=== PATIENT | male | born 1985 | race Caucasian/White ===

== ENCOUNTER 2022-12-30 15:07 | Emergency (ER) | payer MEDICAID, SELFPAY ==
[2022-12-30 15:19] VITALS: BP 138/75; PULSE 99; RESP 22; TEMP 36.5; O2SAT 97; BMI 33.0
--- NOTE | 2022-12-30 15:31 | CRLHL7_ITS ---
For Patients: As a result of the Cures Act, medical imaging exams and procedure reports are released immediately into your electronic medical record. You may view this report before your referring provider. If you have questions, please contact your health care provider. INDICATION: Left TMJ injury and pain. TECHNIQUE: CT maxillofacial without contrast. COMPARISON: None FINDINGS: Facial bones: No fractures or bone lesions. Specifically the nasal bones, temporomandibular joints, maxilla and mandible appear intact. Orbits and globes: Unremarkable. Globes are intact. No sign of intraorbital hemorrhage or emphysema. Sinuses: No acute or significant findings. Soft tissues: Unremarkable. IMPRESSION: Normal maxillofacial CT. Please note that all CT scans at this facility use dose modulation, iterative reconstruction, and/or weight-based dosing when appropriate to reduce radiation dose to as low as reasonably achievable. Dictated by Bruno Bhandari MD @ 12/30/2022 4:45:42 PM (Electronically Signed)
--- NOTE | 2022-12-30 17:02 | ED.GENADULT ---
HPI - General Adult General Chief complaint: Jaw Injury/Pain Stated complaint: Jaw Injury Time Seen by Provider: 12/30/22 15:26 Source: patient Mode of arrival: ambulatory Limitations: no limitations History of Present Illness HPI narrative: 37-year-old male coming in today complaining of jaw pain and jaw deviation. He states that about 4 days ago he was trying hold piece of paper underneath his chin when he felt a pop in the left TMJ and had immediate discomfort. Soon after he noticed that his jaw was deviated to the right. He complains now of pain just anterior to the ear, pain with opening closing the mouth. He denies any systemic symptoms like fevers or chills. He denies nausea or vomiting. He denies ear pain. He can open and close his jaw but it again is painful, he has pain with chewing. He has no stinging or burning sensation across the cheek chin or forehead. No drainage from the ear. He denies any teeth pain. Related Data Home Medications Medication Instructions Recorded Confirmed No Known Home Medications 12/30/22 12/30/22 Allergies Allergy/AdvReac Type Severity Reaction Status Date / Time No Known Drug Allergies Allergy Verified 12/30/22 15:23 Review of Systems Status of ROS: Reports: 10 or more systems reviewed and unremarkable except as noted in History and below PFSH [facility] Social History Smoking Status: Current every day smoker What tobacco products do you use: cigarettes Smoking packs per day: 1 Smoking cigarettes per day: 20.0 Do you use any of these nicotine containing products: None Second hand tobacco smoke exposure: No How often do you have a drink containing alcohol: 2-4 times a month How many standard drinks containing alcohol do you have on a typical day: 1 or 2 How often do you have six or more drinks on one occasion: Never AUDIT-C Alcohol total score: 2 Non-prescribed substance use: denies use Exam Narrative: Exam Narrative: Well-nourished well-developed patient in no acute distress. Alert and oriented. Answers questions appropriately. Mood and affect are appropriate. Thoughts are goal oriented and rational. No tangential or magical thinking noted. Patient speaks in full sentences without needing to catch his breath. HEENT: Normocephalic atraumatic. Pupils are equally round reactive to light. Extraocular muscles are intact. Conjunctivae are moist without any icterus noted. Moist mucous membranes. Posterior pharynx is normal. Neck is soft without any lymphadenopathy or thyromegaly. No masses are appreciated. TMs are clear bilaterally. Teeth are intact. Normal tongue. It does appear that the mandible is deviated slightly to the right. When he closes his mouth his teeth do not quite line up. He is able to open and close his mouth fully with discomfort at the left TMJ however. He can move the mandible left and right buttock again, causes discomfort. Cardiovascular: Heart is regular rate and rhythm. Lungs: Clear to auscultation bilaterally. Skin: Well perfused without any obvious rashes. Const: Vital Signs, click to edit/add: Vital Signs - 24 hr 12/30/22 15:19 Temperature 97.7 F Pulse Rate [Pulse Oximeter] 99 Respiratory Rate 22 Blood Pressure [Ri ght Upper Arm] 138/75 Pulse Oximetry 97 Oxygen Delivery Me thod Room Air Course Course Hospital Course: Given the deviation of his jaw we did proceed with a facial bone CT scan which was unremarkable. Vital Signs Vital signs: Initial Vital Signs Temperature 97.7 F 12/30/22 15:19 Temperature Source Temporal Artery Scan 12/30/22 15:19 Pulse Rate 99 12/30/22 15:19 Respiratory Rate 12/30/22 15:19 Blood Pressure 138/75 12/30/22 15:19 Blood Pressure Mean 96 12/30/22 15:19 Blood Pressure Position Sitting 12/30/22 15:19 Pulse Oximetry 97 12/30/22 15:19 Oxygen Delivery Method 12/30/22 15:19 Vital Signs Temperature 97.7 F 12/30/22 15:19 Pulse Rate 99 12/30/22 15:19 Respiratory Rate 22 12/30/22 15:19 Blood Pressure 138/75 12/30/22 15:19 Pulse Oximetry 97 12/30/22 15:19 Oxygen Delivery Method 12/30/22 15:19 Temperature 97.7 F 12/30/22 15:19 Pulse Rate 99 12/30/22 15:19 Respiratory Rate 22 12/30/22 15:19 Blood Pressure 138/75 12/30/22 15:19 Pulse Oximetry 97 12/30/22 15:19 Oxygen Delivery Method 12/30/22 15:19 Medical Decision Making MDM Narrative Medical decision making narrative: 37-year-old male with pain at the left TMJ after hearing a sudden pop. Question if he is experiencing inflammation or swelling at that joint causing deviation of the jaw. We discussed the possibility of infection causing this however do not see any evidence of that on physical examination today. For now we will treat with ibuprofen 800 mg 3 times a day for the next 3 days to see if this helps with swelling and pain. If he does not see improvement I recommend he follow up with ENT. Patient was agreeable had no other questions. Imaging Data Facial bones CT: Attestation: I have reviewed the pertinent imaging results. Radiologist's impression: CT maxillofacial without contrast. COMPARISON: None FINDINGS: Facial bones: No fractures or bone lesions. Specifically the nasal bones, temporomandibular joints, maxilla and mandible appear intact. Orbits and globes: Unremarkable. Globes are intact. No sign of intraorbital hemorrhage or emphysema. Sinuses: No acute or significant findings. Soft tissues: Unremarkable. IMPRESSION: Normal maxillofacial CT. Discharge Plan Discharge Clinical Impression: Temporomandibular joint pain Patient Disposition: Home, Self-Care Condition: Stable Additional Instructions: Start ibuprofen 800 mg 3 times a day with meals. Do this for the next 3 days and then take as needed. If you are not seeing improvement in the next 2-3 days, follow-up with research psychologist. Return to the ER if you develop fever, inability to open and close your mouth or worsening pain. Prescriptions: No Action No Known Home Medications Follow Up/Referrals: Provider,Not a Local [Primary Care Provider] - Stand Alone Forms: [employer] Info Instructions
== END 2022-12-30 17:29 | disposition home or self-care (01) ==
PROVIDERS: Emergency Provider Family Medicine
DX: M26.609 Unspecified temporomandibular joint disorder, unspecified side (principal)
CPT/HCPCS: 70486; 99283; 99284

== ENCOUNTER 2023-03-21 11:27 | Emergency (ER) | payer MEDICAID, SELFPAY ==
--- NOTE | 2023-03-21 11:28 | CRLHL7_ITS ---
For Patients: As a result of the Cures Act, medical imaging exams and procedure reports are released immediately into your electronic medical record. You may view this report before your referring provider. If you have questions, please contact your health care provider. Indication: Right foot injury. Technique: Right foot, 3 views. Comparison: None. Findings/Impression: Bones: Prior 5th metatarsal fracture status post hardware fixation. Recommend correlation with date of injury to evaluate for chronicity/nonunion. Alignment is normal. Otherwise, no displaced fractures or bone lesions. Joint spaces: Unremarkable. Soft tissues: Unremarkable. Dictated by Adrien Michelle MD @ 03/21/2023 12:33:34 PM (Electronically Signed)
--- NOTE | 2023-03-21 11:38 | CRLHL7_ITS ---
For Patients: As a result of the Cures Act, medical imaging exams and procedure reports are released immediately into your electronic medical record. You may view this report before your referring provider. If you have questions, please contact your health care provider. Indication: Trauma. Technique: Right ankle, 3 views. Comparison: None. Findings/Impression: Bones: Alignment is normal. No displaced fractures or bone lesions. Joint spaces: Unremarkable. Soft tissues: Unremarkable. Dictated by Adrien Michelle MD @ 03/21/2023 12:35:05 PM (Electronically Signed)
--- NOTE | 2023-03-21 11:39 | ED_ITS ---
HPI - General Adult General Chief complaint: Extremity Pain/Injury, Lower Stated complaint: possible RT broken foot Time Seen by Provider: 03/21/23 11:28 History of Present Illness HPI narrative: Patient reports he is playing softball last night took off from above base running moved and had a pop in his right ankle and foot. He describes it just superior to his proximal 5th meta tarsal. He reports he has had what sounds like a Palomo fracture repair in the past. He has hardware in his foot. He had this repaired at an outside institution. He has no marked ankle pain but he has pain between his lateral malleolus and his proximal 5th metatarsal. He has been able to stand but with discomfort. Related Data Home Medications Medication Instructions Recorded Confirmed No Known Home Medications 12/30/22 03/21/23 Allergies Allergy/AdvReac Type Severity Reaction Status Date / Time No Known Drug Allergies Allergy Verified 03/21/23 11:53 Review of Systems Status of ROS: Reports: 6 or more systems reviewed and unremarkable except as noted in History and below PFSH [facility] Surgical History (Updated 03/21/23 @ 14:38 by Lydia Roth) S/P ORIF (open reduction internal fixation) fracture ?Z98.890 - Other specified postprocedural states (ICD-10) ?Z87.81 - Personal history of (healed) traumatic fracture (ICD-10) Social History Smoking Status: Current every day smoker What tobacco products do you use: cigarettes Smoking packs per day: 1 Smoking cigarettes per day: 20.0 Do you use any of these nicotine containing products: None Second hand tobacco smoke exposure: No How often do you have a drink containing alcohol: 2-4 times a month How many standard drinks containing alcohol do you have on a typical day: 1 or 2 How often do you have six or more drinks on one occasion: Never AUDIT-C Alcohol total score: 2 Non-prescribed substance use: denies use Exam Narrative: Exam Narrative: Objective: Patient is alert orient x3 his right foot shows some tenderness over his prox proximal 5th metatarsal but actually more superior to that just distal to his distal fibula. There is some mild soft tissue swelling there his Achilles is intact his distal CMS is intact no open wounds noted Const: Vital Signs, click to edit/add: Vital Signs - 24 hr 03/21/23 11:53 Temperature 97.7 F Pulse Rate [Pulse Oximeter] 71 Respiratory Rate 16 Blood Pressure [Ri ght Upper Arm] 143/81 H Pulse Oximetry 95 Oxygen Delivery Me thod Room Air Course Vital Signs Vital signs: Initial Vital Signs Temperature 97.7 F 03/21/23 11:53 Temperature Source Temporal Artery Scan 03/21/23 11:53 Pulse Rate 71 03/21/23 11:53 Pulse Rhythm Regular 03/21/23 11:53 Pulse Strength 3+ Normal 03/21/23 11:53 Respiratory Rate 16 03/21/23 11:53 Blood Pressure 143/81 H 03/21/23 11:53 Blood Pressure Mean 101 03/21/23 11:53 Blood Pressure Position Sitting 03/21/23 11:53 Pulse Oximetry 95 03/21/23 11:53 Oxygen Delivery Method Room Air 03/21/23 11:53 Vital Signs Temperature 97.7 F 03/21/23 11:53 Pulse Rate 71 03/21/23 11:53 Respiratory Rate 16 03/21/23 11:53 Blood Pressure 143/81 H 03/21/23 11:53 Pulse Oximetry 95 03/21/23 11:53 Oxygen Delivery Method Room Air 03/21/23 11:53 Temperature 97.7 F 03/21/23 11:53 Pulse Rate 71 03/21/23 11:53 Respiratory Rate 16 03/21/23 11:53 Blood Pressure 143/81 H 03/21/23 11:53 Pulse Oximetry 95 03/21/23 11:53 Oxygen Delivery Method Room Air 03/21/23 11:53 Medical Decision Making [facility] Narrative Medical decision making narrative: Patient has a history of surgery on his right foot with sounds like a 5th metatarsal fracture. He had a injury to it last night while playing softball. Will check an x-ray of his foot and ankle. Disposition pending findings Addendum: The patient has a 5th metatarsal screw for a probable Palomo fracture, but he also has a crack through the metatarsal at about the mid screw, the screw seems somewhat band but does not appear fractured. Will place him in a cam walker, non being weight-bearing crutches, Advil and Tylenol and ice. Will make an appointment with the orthopedic office. Discharge Plan Discharge Clinical Impression: Acute foot pain Patient Disposition: Home, Self-Care Condition: Stable Additional Instructions: Gel splint, ice, crutches, nonweightbearing, ortho follow-up in 2-3 days. Tylenol Advil as needed Follow up appointment is scheduled at the [facility] on 03/23 with a 9:10am arrival time. If you have any questions or need to reschedule, please call [phone]. [facility] [place] [address] Activity Level: Light activity Discharge Diet: Regular Prescriptions: No Action No Known Home Medications Follow Up/Referrals: Provider,Not a Local [Primary Care Provider] - Stand Alone Forms: [employer] Info Instructions
[2023-03-21 11:53] VITALS: BP 143/81; PULSE 71; RESP 16; TEMP 36.5; O2SAT 95; BMI 33.0
--- NOTE | 2023-03-21 12:43 | ED.NURSE ---
Patient was discharged. Crutches and gel cast applied at first. Dr. Rob wanted a Cam boot after xrays were back. Gel cast was removed and cam boot placed. Ortho appointment made for march 23 in the morning.
== END 2023-03-21 12:45 | disposition home or self-care (01) ==
PROVIDERS: Emergency Provider Family Medicine
DX: M79.671 Pain in right foot (principal); Y93.02 Activity, running; Y93.64 Activity, baseball
CPT/HCPCS: 29505; 73610; 73630; 99284

== ENCOUNTER 2023-08-09 11:30 | Outpatient (RCR) | payer MEDICAID, SELFPAY ==
--- NOTE | 2023-05-17 16:46 | PT.OPEX ---
PT [place] Outpatient Eval PT [facility] Outpatient Eval Start: 05/17/23 12:34 Freq: Status: Active Protocol: Document 05/17/23 13:38 MAKENZIE (Rec: 05/17/23 13:49 MAKENZIE [id number]) E-signed By Sarah Escamilla DPT Physical Therapy Outpatient Evaluation Insurance Information Recert Due Date 08/15/23 Insurance Name Liz Medical Diagnosis s/p R 5th metatarsal ORIF 03/28 Treating Diagnosis s/p R 5th metatarsal ORIF 03/28 with R foot pain, currently in R walking boot, impaired R ankle ROM, impaired R ankle/LE strength/stability , impaired gait, limited tolerance for extended standing/walking, currently off work Subjective Subjective Patient reports initial injury /fx of R foot about a year and a half ago. States he had hardware placed back with that original injury but had some ongoing issues with his R foot . He was playing softball early March and when pushing off from [employer] [place] felt a pop in his R foot. He went to the ED a couple of days later and was placed in a CAM boot with ortho follow up. He had surgery 03/28, ORIF with plate and screws to R 5th metatarsal . He reports being off work since early March. He was NWB until his MD appt 05/11 and can now progress WB as tolerated in the walking boot using crutches. He is hoping to return to work as soon as possible. 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 States he can return with work restrictions for shorter work shifts when he is moving better. He has been working on progressing his WB as tolerated in the walking boot. Using crutches for amb. Pain range 0-7/10. He is not using pain meds, advil, tylenol, ice. Has not been wearing the tubigrip compression the last several weeks but has it at home. He has been taking the boot off at night and for showering. Date of Last Physician Visit 05/11/23 Date of Surgery (If applicable) 03/28/23 Occupation currently off work since the injury and now after surgery Precautions Treatment Precautions/Contraindications WBAT in walking boot with crutches, progressing as tolerated Weight Bearing Status Weight Bear as Tolerated Assessment Assessment/Impression s/p R 5th metatarsal ORIF 03/28 with R foot pain, currently in R walking boot, impaired R ankle ROM, impaired R ankle/LE strength/stability , impaired gait, limited tolerance for extended standing/walking, currently off work. Pain range 0-7/10. Patient reports increased pain if he over does it with WB or with extended time on his feet/by the end of the day . R ankle AROM: DF to neutral , PF 30 degrees. L ankle AROM : DF 12 degrees, PF 36 degrees . Patient with R ankle weakness, instability. Reviewed WB with walking boot on R LE. He is able to demonstrate standing weight shifts, walk in place, sidestepping R/L, walking along elevated table - all with walking boot this session . Reviewed use of crutches as needed, progression of WB as able. Discussed progression of WBAT in walking boot without crutches and then progression to weaning out of the walking boot into a regular shoe again. He expressed understanding. He is hoping to return to work with restrictions as soon as possible. Able to initiate ROM and weightbearing exercises/activities this session. Tolerated well. Patient would benefit from skilled PT for pain/sx management, improved R ankle ROM, improved R ankle strength /stability, improved R LE strength, gait/balance training, and establishment of HEP. Plan of Care Rehabilitation Potential Good Physical Therapy Goals 1. Decrease R ankle/foot pain at less than/equal to 3/10 with daily/work activities and with the progression of PT activities over the next 6-8 weeks. 2. Improve R ankle ROM over the next 8-10 weeks for return to normal gait mechanics, reciprocal stair negotiation, and PLF with daily/work activities. 3. Improve R ankle/LE strength over the next 10-12 weeks for progression of WB, weaning out of walking boot, return to normal gait without an AD, and for return to PLF with daily/work activities without flare up of pain. 4. Improve R ankle/LE balance /proprioception over the next 8-10 weeks for return to PLF with daily/work activities and normal gait without flare up of pain. 5. Patient will be I with HEP within 12 weeks for progression toward above goals, ongoing self management of pain/sx, ongoing self improvements in ROM/strength/ balance/proprioception/gait, and for return to PLF with daily/work/workout activities without flare up of pain. Coordination/Communication With Referral Source Treatment Plan/Direct Interventions Gait Training,Manual Therapy, Therapeutic Exercises Frequency/Duration 1x/week Patient Will Be Discharged From Therapy Completion of LTG(s),Skills Plateau,Independent w/HEP, Independently Progressing Evaluation Billing Untimed Code Treatment Minutes 22 Complexity Moderate Certification Information Initial Certification Date 05/17/23 Ending Certification Date 08/15/23 Provider Signature Shows Agreement With POC & Medical Necessity Physician Signature & Date Requested Please Sign/Date Here Physician Comment/Change : Physician NPI Number #
== END 2023-10-29 15:06 | disposition home or self-care (01) ==
PROVIDERS: Visit Provider Orthopaedic Surgery Sports Medicine
DX: Z98.890 Other specified postprocedural states (principal); Z51.89 Encounter for other specified aftercare
CPT/HCPCS: 97110; 97162

== ENCOUNTER 2023-09-05 16:59 | Emergency (ER) | payer MEDICAID, SELFPAY ==
[2023-09-05 17:03] VITALS: BP 149/89; PULSE 80; RESP 18; TEMP 36.6; O2SAT 98; BMI 33.0
--- NOTE | 2023-09-05 17:31 | CRLHL7_ITS ---
For Patients: As a result of the Cures Act, medical imaging exams and procedure reports are released immediately into your electronic medical record. You may view this report before your referring provider. If you have questions, please contact your health care provider. INDICATION: Pain, postop. TECHNIQUE: Right foot 3 views. COMPARISON: Right foot radiographs 06/22/2023. FINDINGS: No acute fracture or dislocation. Plate and screw fixation of the 5th metatarsal through a transverse fracture of the proximal shaft. The fracture appears incompletely healed. Hardware is stable in position, however there is a new fracture through the middle of the plate. Mild soft tissue swelling in the lateral foot. IMPRESSION: 1. Hardware fixation through a healing fracture of the proximal 5th metatarsal shaft. 2. New fracture through the middle of the hardware plate. Dictated by Hui Dubois MD @ 09/05/2023 6:49:26 PM (Electronically Signed)
--- NOTE | 2023-09-05 17:50 | ED.GENADULT ---
HPI - General Adult General Chief complaint: Extremity Pain/Injury, Lower Stated complaint: Right foot Pain Time Seen by Provider: 09/05/23 17:23 Related Data Previous Rx's Medication Instructions Recorded celecoxib 200 mg capsule (Celebrex) 200 mg PO DAILY #10 caps 09/05/23 Allergies Allergy/AdvReac Type Severity Reaction Status Date / Time No Known Drug Allergies Allergy Verified 09/05/23 17:03 PFSH PFS Surgical History (Updated 05/11/23 @ 11:36 by Lydia Roth) History of open reduction and internal fixation (ORIF) procedure (03/28/23) ?Z98.890 - Other specified postprocedural states (ICD-10) S/P ORIF (open reduction internal fixation) fracture (08/26/21) ?Z98.890 - Other specified postprocedural states (ICD-10) ?Z87.81 - Personal history of (healed) traumatic fracture (ICD-10) Social History (Reviewed 07/03/23 @ 11:28 by Latisha Fan ~ [facility], [facility]) Smoking Status: Current every day smoker What tobacco products do you use: cigarettes Smoking packs per day: 1 Smoking cigarettes per day: 20.0 Years smoked: 21 Smoking pack-years: 21.00 Do you use any of these nicotine containing products: None Second hand tobacco smoke exposure: No How often do you have a drink containing alcohol: 2-4 times a month Alcohol type: hard liquor How many standard drinks containing alcohol do you have on a typical day: 5 or 6 How often do you have six or more drinks on one occasion: Never AUDIT-C Alcohol total score: 4 Non-prescribed substance use: other Non-prescribed substance use details: CBD Caffeine: Yes (Energy drinks 2) Exam Const: Vital Signs, click to edit/add: Vital Signs - 24 hr 09/05/23 17:03 Temperature 98 F Pulse Rate [Pulse Oximeter] 80 Respiratory Rate 18 Blood Pressure [Ri ght Upper Arm] 149/89 H Pulse Oximetry 98 Oxygen Delivery Me thod Room Air Course Vital Signs Vital signs: Initial Vital Signs Temperature 98 F 09/05/23 17:03 Temperature Source Temporal Artery Scan 09/05/23 17:03 Pulse Rate 80 09/05/23 17:03 Respiratory Rate 18 09/05/23 17:03 Blood Pressure 149/89 H 09/05/23 17:03 Blood Pressure Mean 109 H 09/05/23 17:03 Blood Pressure Position Sitting 09/05/23 17:03 Pulse Oximetry 98 09/05/23 17:03 Oxygen Delivery Method Room Air 09/05/23 17:03 Vital Signs Temperature 98 F 09/05/23 17:03 Pulse Rate 80 09/05/23 17:03 Respiratory Rate 18 09/05/23 17:03 Blood Pressure 149/89 H 09/05/23 17:03 Pulse Oximetry 98 09/05/23 17:03 Oxygen Delivery Method Room Air 09/05/23 17:03 Temperature 98 F 09/05/23 17:03 Pulse Rate 80 09/05/23 17:03 Respiratory Rate 18 09/05/23 17:03 Blood Pressure 149/89 H 09/05/23 17:03 Pulse Oximetry 98 09/05/23 17:03 Oxygen Delivery Method Room Air 09/05/23 17:03 Medical Decision Making MDM Narrative Medical decision making narrative: Patient has an x-ray that shows by my read questionable crack across the plate where the screw would sit. This certainly could be 2 plates just abutting each other but it appears to be a plate that might have a crack in it. He should discuss this with Ortho, elevation nonweightbearing, off work for few days. Will attempt to make an appointment as mention thanks Discharge Plan Discharge Clinical Impression: Acute pain of right foot Patient Disposition: Home, Self-Care Condition: Stable Additional Instructions: Recommend off work times 4-5 days, follow-up with orthopedics at that time. Will give prescription for Celebrex which is a strong anti-inflammatory to help with the pain and swelling. Recommend he use crutches and nonweightbearing for 3-4 days as well as aggressive icing at 5-10 minutes over the affected part of the foot for 5 times a day. Return to the ED sooner problems or concerns. We Will try and make an orthopedic appointment before you leave today. Sunday at 10:40 - [phone] Activity Level: Light activity Activity Detail: Off work until next Sunday and seen by Orthopedics Discharge Diet: Regular Prescriptions: New celecoxib [Celebrex] 200 mg capsule 200 mg PO DAILY Qty: 10 2RF Follow Up/Referrals: Provider,Not a Local [Primary Care Provider] - Stand Alone Forms: [employer] Info Instructions
== END 2023-09-05 18:00 | disposition home or self-care (01) ==
LOC: ED 17:40
PROVIDERS: Emergency Provider Family Medicine
DX: M79.671 Pain in right foot (principal)
CPT/HCPCS: 73630; 99283; 99284

== ENCOUNTER 2025-03-26 17:03 | Emergency (ER) | payer MEDICAID, SELFPAY ==
[2025-03-26 17:13] VITALS: BP 137/89; PULSE 89; RESP 18; TEMP 37.6; O2SAT 100; BMI 30.3
--- NOTE | 2025-03-26 17:26 | CRLHL7_ITS ---
For Patients: As a result of the Century Cures Act, medical imaging exams and procedure reports are released immediately into your electronic medical record. You may view this report before your referring provider. If you have questions, please contact your health care provider. INDICATION: Trauma TECHNIQUE: Chest and right rib radiographs, 3 views. COMPARISON: None. FINDINGS: Cardiovascular/Mediastinum: Normal heart size. Unremarkable. Lungs: No focal consolidation. Airways: Trachea remains midline. Pleura: No pleural effusions or pneumothorax. Bones: No acute osseous abnormalities. No acute displaced rib fractures on the dedicated oblique views. Upper abdomen: Unremarkable. IMPRESSION: No acute cardiopulmonary process. No acute displaced rib fractures, pleural effusions or pneumothorax. Dictated by Maximo Longoria MD @ 03/26/2025 6:41:04 PM (Electronically Signed)
--- NOTE | 2025-03-26 17:26 | CRLHL7_ITS ---
For Patients: As a result of the Century Cures Act, medical imaging exams and procedure reports are released immediately into your electronic medical record. You may view this report before your referring provider. If you have questions, please contact your health care provider. INDICATION: Trauma. TECHNIQUE: Right shoulder radiographs, 3 views. COMPARISON: None. FINDINGS: No acute fractures or dislocation. The joint spaces are preserved. The glenoid appears intact. The visualized lung ayers appear clear. IMPRESSION: No acute fractures or dislocation. Dictated by Maximo Longoria MD @ 03/26/2025 6:47:52 PM (Electronically Signed)
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
[2025-03-26] MEDS: KETOROLAC 30 MG/ML inj IM (17:52)
--- OUTSIDE RECORDS SUMMARY | 2025-03-26 18:07 | XMS_ITS | Encounter Summary ---
Author Organization [place] Address [address] [place] [address] Care Team Providers Care Web Designer Name Role Phone No Ref-Primary, Physician Primary Care Provider Dwayne Krishna MD Unavailable [phone] Maximino Diaz PA-C Unavailable [phone] Encounter Details Date Type Department Care Team (Late st Contact Info) Description 08/11/2021 Documentation Only INTERFACED REPORT Unknown, Provider Social History Tobacco Use Types Packs/Day Years Used Date Smoking Tobacco: Never Assessed PHQ-2 Answer Date Recorded PHQ-2 Score 0 08/23/2021 Adolescent Education Answer Date Record ed Getting School Help Needed Not on file 08/04 Sex and Gender Information Value Date Recorded Sex Assigned at Not on file Legal Sex Male 8:26 PM CDT Gender Identity Not on file Sexual Orientation Not on file COVID-19 Exposure Response Date Recorded In the last month, have you been in contact with someone who was confirmed or suspected to have Coronavirus / COVID-19? Yes 11/07/2021 1:06 PM AMBULATORY TECHNOLOGIST documented as of this encounter Plan of Treatment Not on file documented as of this encounter Visit Diagnoses Not on filedocumented in this encounter Care Teams Web Designer Relationship Specialty Start Date End Date No Ref-Primary, Physician PCP - General 08/10/21 Dwayne Krishna MD [id number] [place] [address] Assigned PCP 08/05/21 11/12/21 Maximino Diaz PA-C [address] [place] [id number] Assigned PCP 11/13/21 12/03/24 documented as of this encounter
--- OUTSIDE RECORDS SUMMARY | 2025-03-26 18:08 | XMS_ITS | Clinical Summary ---
Author Organization [employer] [facility] Address [facility] [place] [address] Care Team Providers Care Skein Yarn Dyer Name Role Phone No, Pcp [[id number]] Primary Care Provider Unavailabl e Allergies No known active allergies Medications IBUPROFEN 200 MG TAB take 1 tablet (200 mg) by oral route every 6 hours as needed with food Active fluticasone (50 mcg per actuation) nasal solution (FLONASE)Indica tions:Hoarse voice quality Inhale 2 Sprays to both nostrils once daily. 16 g 03/07/2024 Active omeprazole 20 mg tabletIndicatio ns:Hoarse voice quality Take 1 Tablet (20 mg) by mouth once daily before a meal. 14 Tablet 03/07/2024 Active Social History Tobacco Use Types Packs/Day Years Used Date Smoking Tobacco: Every Day Cigarettes Smokeless Tobacco: Never Tobacco Cessation:Ready to Q uit: Yes; Counseling Given: Yes Alcohol Use Standard Drinks/Week Comments Yes 0 (1 standard drink = 0.6 oz pur e alcohol) Sex and Gender Information Value Date Recorded Sex Assigned at Not on file Legal Sex Male 5:43 AM STOCK PULLER Gender Identity Not on file Sexual Orientation Not on file Obstetrics History Last Filed Vital Signs Vital Sign Reading Time Taken Comments Blood Pressure 122/83 08/06/2024 1:05 PM CDT Pulse 85 08/06/2024 1:05 PM CDT Temperature 36.8 C (98.3 F) 03/07/2024 1:19 PM CDT Respiratory Rate 18 11/10/2008 3:48 PM STOCK PULLER Oxygen Saturation 97% 08/06/2024 1:05 PM CDT Inhaled Oxygen Concentration - - Weight 119.6 kg (263 lb 9.6 oz) 08/06/2024 1:05 PM CDT Height 188.1 cm (6' 2.06) 03/26/2023 2:06 PM CD T Body Mass Index 33.79 03/26/2023 2:06 PM CDT Plan of Treatment Health Maintenance Due Date Last Done Comments Tdap 1997 Depression screening for age 12+ 1998 HIV for age 15-65 2001 Hepatitis C screening for age 18-79 2004 Pneumococcal series for age 6-49 (1 of 2 - PCV) 2004 Tetanus booster 2006 Lipids for age 35-44 2021 BMI (ht and wt on same day) for age 18+ 03/26/2024 0 03/26/2023 COVID-19 vaccine series ( season) Influenza Vaccine (Season Ended) 2025 Insurance [facility] Care Teams Skein Yarn Dyer Relationship Specialty Start Date End Date NO, PCP [[id number]] PCP - General 05/01/17
--- OUTSIDE RECORDS SUMMARY | 2025-03-26 18:08 | XMS_ITS | Clinical Summary ---
Author Organization [place] Address [address] [place] [address] Care Team Providers Care Master Cook Name Role Phone No Ref-Primary, Physician Primary Care Provider Allergies No known active allergies Medications oxyCODONE-aceta minophen (PERCOCET) 5-325 MG tablet Take 1-2 tablets by mouth every 4 hours as needed for pain 12 tablet Active Additional Information Patient not taking.Reported on 08/23/2021 Active Problems No known active problems Social History Tobacco Use Types Packs/Day Years Used Date Smoking Tobacco: Every Day Cigarettes Smokeless Tobacco: Never Alcohol Use Standard Drinks/Week Comments Not Currently 0 (1 standard drink = 0.6 oz pur e alcohol) PHQ-2 Answer Date Recorded PHQ-2 Score 0 08/23/2021 Adolescent Education Answer Date Record ed Getting School Help Needed Not on file 08/04 Sex and Gender Information Value Date Recorded Sex Assigned at Not on file Legal Sex Male 8:26 PM CDT Gender Identity Not on file Sexual Orientation Not on file Last Filed Vital Signs Vital Sign Reading Time Taken Comments Blood Pressure 120/62 08/23/2021 2:28 PM CDT Pulse 70 08/23/2021 2:28 PM CDT Temperature 36.8 C (98.2 F) 08/23/2021 2:28 PM CDT Respiratory Rate 18 08/23/2021 2:28 PM CDT Oxygen Saturation 98% 08/11/2021 3:05 AM CDT Inhaled Oxygen Concentration - - Weight 113.4 kg (250 lb) 08/23/2021 2:28 PM CDT Height 185.4 cm (6' 1) 08/23/2021 2:28 PM CDT Body Mass Index 32.98 08/23/2021 2:28 PM CDT Plan of Treatment Not on file Care Teams Master Cook Relationship Specialty Start Date End Date No Ref-Primary, Physician PCP - General 08/10/21
== END 2025-03-26 19:10 | disposition home or self-care (01) ==
PROVIDERS: Emergency Provider Student in an Organized Health Care Education/Training Program
DX: S43.401A Unspecified sprain of right shoulder joint, initial encounter (principal); V19.9XXA Pedal cyclist (driver) (passenger) injured in unspecified traffic accident, initial encounter
CPT/HCPCS: 71101; 73030; 96372; 99283; J1885

== ENCOUNTER 2025-04-22 08:16 | Outpatient (CLI) | payer MEDICAID, SELFPAY ==
--- NOTE | 2025-04-22 08:15 | MR_ITS ---
[address] [address] Phone:?[phone] Fax:?[phone] Referring Physician Information: Rob Harris M.D. [address] [facility] [address] Phone:?[phone] Fax:?[phone] Patient:Sara Javed D.O.B:?1985 Sex:?Male Phone:?[phone] [facility] MRN:?[id number] Exam Date:?04/22/2025 EXAM: MRI of the RIGHT SHOULDER WITHOUT CONTRAST CLINICAL HISTORY: Unspecified injury of right shoulder. Evaluate for rotator cuff tear. COMPARISONS: Plain radiographs 03/26/2025. TECHNICAL: MRI sequences of the right shoulder: Axials: PD, T2 Coronals: PD, STIR, T2 Sagittals: PD, T2 SEDATION: None CONTRAST: None FINDINGS: Bones: There is a comminuted and substantially displaced fracture of the scapular body that is not completely covered in the [id number] of this study. Coracoacromial arch: Acromion: No os acromiale. Type I-II acromion. Acromiohumeral space: The bony distance is unremarkable. Acromioclavicular joint: Sprain/ill-defined partial tearing of the acromioclavicular joint ligament. No widening of the acromioclavicular joint. Coracoclavicular ligament: The coracoclavicular ligament is intact. No superior subluxation of the distal clavicle. Rotator cuff muscles/tendons: Supraspinatus: Tiny 4 x 4 mm concealed slitlike intrasubstance tear within the supraspinatus tendon insertional footprint coursing along the cortical insertional surface best seen on coronal series 5 image 10 and sagittal series 9 image 8. No muscular atrophy. Infraspinatus: The infraspinatus tendon and muscle are intact. Teres minor: Partial laceration of the teres minor muscle secondary to displaced scapular body fracture. The teres minor tendon insertion is intact. Subscapularis: The subscapularis tendon and muscle are intact. Labrum and glenohumeral joint: The labrum is not well evaluated because of nonarthrogram technique and suboptimal [id number]. Physiologic amount of joint fluid. No discrete chondral defect or subchondral bone marrow edema/cystic change is seen. No convincing evidence of capsular edema or thickening although evaluation is suboptimal because of lack of joint distention. Proximal biceps tendon, long head and short heads: The long and short heads of the proximal biceps tendon are intact. Bursae: Subacromial/subdeltoid: No convincing subacromial bursal thickening/bursitis. Subcoracoid: No convincing subcoracoid bursal thickening/bursitis. IMPRESSION: 1. Comminuted and substantially displaced fracture of the scapular body, not completely covered in the vfnkh-[id number] of this study or optimally evaluated by this study. CT scan is recommended for further evaluation. 2. Associated partial laceration of the teres minor muscle. 3. Tiny 4 x 4 mm concealed slitlike intrasubstance tear within the supraspinatus tendon insertional footprint coursing along the cortical insertional surface. No articular or bursal surfacing rotator cuff tendon tear. No rotator cuff muscular atrophy. 4. Age-indeterminate sprain/ill-defined partial tearing of the acromioclavicular joint ligament. No widening of the acromioclavicular joint. Intact coracoclavicular ligament without superior subluxation of the distal clavicle. 5. Intact biceps tendon. RCB Electronically signed on 04/22/2025 10:25:00 AM by Bill Gonzalez M.D.
== END 2025-04-22 08:17 | disposition home or self-care (01) ==
LOC: MRI 08:17
PROVIDERS: Visit Provider Orthopaedic Surgery Sports Medicine
DX: M25.511 Pain in right shoulder (principal); S49.91XA Unspecified injury of right shoulder and upper arm, initial encounter; S42.111A Displaced fracture of body of scapula, right shoulder, initial encounter for closed fracture; M75.101 Unspecified rotator cuff tear or rupture of right shoulder, not specified as traumatic; S43.51XA Sprain of right acromioclavicular joint, initial encounter
CPT/HCPCS: 73221

== ENCOUNTER 2025-06-10 18:28 | Outpatient (CLI) | payer MEDICAID, SELFPAY | END 2025-06-10 18:29 | disposition home or self-care (01) | LOC: AMB 06-17 14:59 | PROVIDERS: Visit Provider Family Medicine | DX: S09.90XA Unspecified injury of head, initial encounter (principal); S49.90XA Unspecified injury of shoulder and upper arm, unspecified arm, initial encounter; Y04.8XXA Assault by other bodily force, initial encounter; Y92.039 Unspecified place in apartment as the place of occurrence of the external cause | CPT/HCPCS: A0425; A0427 ==

== ENCOUNTER 2025-06-10 19:11 | Emergency (ER) | payer MEDICAID, SELFPAY ==
--- OUTSIDE RECORDS SUMMARY | 2025-06-10 19:13 | XMS_ITS | Clinical Summary ---
Author Organization [employer] [facility] Address [address] [place] [address] Care Team Providers Care Date Puller Name Role Phone No, Pcp [[id number]] Primary [...] on file Legal Sex Male 5:43 AM FUR IRONER Gender Identity Not on file Sexual Orientation Not on file Obstetrics History Last Filed Vital Signs Vital Sign Reading Time Taken Comments Blood Pressure 122/83 08/06/2024 1:05 PM CDT Pulse 85 08/06/2024 1:05 PM CDT Temperature 36.8 C (98.3 F) 03/07/2024 1:19 PM CDT Respiratory Rate 18 11/10/2008 3:48 PM FUR IRONER Oxygen Saturation 97% 08/06/2024 1:05 PM CDT Inhaled Oxygen Concentration - - Weight 119.6 kg (263 lb 9.6 oz) 08/06/2024 1:05 PM CDT Height 188.1 cm (6' 2.06) 03/26/2023 2:06 PM CD T Body Mass Index 33.79 03/26/2023 2:06 PM CDT Plan of Treatment Health Maintenance Due Date Last Done Comments Tetanus booster 1997 Depression screening for age 12+ 1998 HIV for age 15-65 2001 Hepatitis C screening for age 18-79 2004 Hepatitis B series for 19+ ( 1 of 3 - 19+ 3-dose series) 2005 Pneumococcal series for age 6-49 (1 of 2 - PCV) 2004 Lipids for age 35-44 2021 BMI (ht and wt on same day) for age 18+ 03/26/2024 0 03/26/2023 COVID-19 vaccine series (2023- season) Influenza Vaccine (#1) 2025 Insurance [facility] Care Teams Date Puller Relationship Specialty Start Date End Date NO, PCP [[id number]] PCP - General 05/01/17
--- OUTSIDE RECORDS SUMMARY | 2025-06-10 19:13 | XMS_ITS | Clinical Summary ---
Author Organization [place] Address [address] [place] [address] Care Team Providers Care Car Salesperson Name Role Phone No Ref-Primary, Physician Primary [...] of Treatment Not on file Care Teams Car Salesperson Relationship Specialty Start Date End Date No Ref-Primary, Physician PCP - General 08/10/21
[2025-06-10 19:17] VITALS: BP 161/96; PULSE 100; RESP 28; TEMP 36.4; O2SAT 100; BMI 30.3
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
[2025-06-10] MEDS: diazePAM 5 MG/ML inj IV (20:02)
[2025-06-10 20:05] VITALS: BP 126/77; PULSE 99; RESP 16; O2SAT 98
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
== END 2025-06-10 20:27 | disposition home or self-care (01) ==
PROVIDERS: Emergency Provider Family Medicine
DX: S62.630A Displaced fracture of distal phalanx of right index finger, initial encounter for closed fracture (principal); S60.511A Abrasion of right hand, initial encounter; S00.83XA Contusion of other part of head, initial encounter; R07.9 Chest pain, unspecified; Y04.0XXA Assault by unarmed brawl or fight, initial encounter; Z73.3 Stress, not elsewhere classified; Z65.9 Problem related to unspecified psychosocial circumstances
CPT/HCPCS: 73130; 93005; 99284; J3360

== ENCOUNTER 2025-11-09 10:42 | Day surgery (SDC) | payer BC, MEDICAID, SELFPAY ==
[2025-11-09] VITALS (12 sets, daily range): BP systolic 123–146; BP diastolic 63–88; PULSE 59–72; RESP 16; TEMP 36.4–36.7; O2SAT 95–99; BMI 31.1
[2025-11-09] MEDS: LACTATED RINGERS 1000 ML 1,000 ML 100 ML IV ×2 (10:55→12:54)
[2025-11-09] MEDS: SODIUM CHLORIDE 0.9 % (FLUSH) 10 ML SYRINGE IVF (11:27)
--- NOTE | 2025-11-09 12:35 | W.PM.H&PU ---
History & Physical Update History & Physical Update H&P Reviewed and patient assessed: The following changes are noted below H&P Updates: After our visit, he noticed a bulge on the left which was reducible. This was initially tender but has improved. He also was diagnosed with a UTI. His surgery last week was postponed until this week until he completed treatment. He states that his hernia symptoms have improved since his UTI was treated, however he still does notice a bulge on the right. On exam today he does have a slight inguinal hernia on the left with Valsalva. He is agreeable to proceed with a bilateral inguinal hernia repair today.
--- NOTE | 2025-11-09 12:37 | PM.GSPRC ---
Operative Note Date of procedure: 11/09/25 Pre-op diagnosis: Bilateral inguinal hernia Post-op diagnosis: Same Type of Procedure: Laparoscopic repair bilateral inguinal hernia Indications: The patient is a 40-year-old male who presented to clinic with symptomatic right inguinal hernia. In after our visit, he noticed a bulge on the left. Unfortunately he was also diagnosed with the urinary tract infection. Surgery last week was postponed. He states that his pressure in his pelvis has improved after treatment of UTI, however still notices a bulge on the left. On exam in preop he was noted to have a small left inguinal hernia. After discussion, he agreed to proceed with repair of bilateral hernias. Procedure Description: After discussing the risks and benefits of the procedure, the patient signed informed consent.? The operative site was marked and the patient was brought to the operating room and placed on the operating table in supine position.? Care was taken to pad the patient's pressure points.?? The patient was then intubated by anesthesia.?? The operative site was then prepped and draped in the usual sterile fashion.? A time-out was then performed. A curvilinear incision was made below the umbilicus. Dissection was carried down to subcutaneous tissue until the anterior rectus fascia was encountered. This was incised off the midline on the right. The rectus muscle fibers were then retracted exposing the posterior fascia. A port with a dissecting balloon was then introduced into the pre-preperitoneal space. This was inflated under direct vision. The balloon was deflated, removed, and a 10 mm working port was placed. The space was insufflated and a 10 mm 30-degree scope was then advanced into the space. Two 5 mm ports were placed in the midline under direct vision. Dissection began on the right side. Eddie's ligament and the pubic bone were exposed medially. Following this, dissection was carried out laterally. A direct defect was noted with a narrow neck and a moderate amount of preperitoneal fat herniated through. This was reduced. The peritoneum was dissected free from the cord structures, ensuring no indirect inguinal hernia. No preperitoneal fat or cord lipoma was noted in the internal ring. Dissection was carried out laterally as well to create a pocket for the mesh. Once this was done, attention was turned to the left. Similarly, the pubic bone Eddie's ligament was dissected free. There was a very small indirect defect noted. The hernia sac was dissected free from the cord structures. There was no cord lipoma noted. No direct defect noted. Dissection was taken out laterally to provide a place for the mesh placement. Once this was done, Bard 3DMax mesh was then placed in the abdomen. This was positioned on the left side and tacked with a single tack at Eddie's ligament. A 2nd piece was positioned on the right. Tacks were placed at Eddie's ligament as well as superior and medial to the direct defect. The mesh did overlap the midline. The mesh was then held in place while the preperitoneal space was desufflated under direct vision to ensure that the mesh laid flat. 10 mL of 0.5% Marcaine were instilled into the preperitoneal space through a port. The ports were removed. The fascia from the infraumbilical port was closed with 0 Vicryl. The skin incisions were closed with absorbable subcuticular suture. Sterile dressings were then applied. The scrotum was examined to ensure that both testicles were down. Instrument sponge and needle counts were correct at the end of the case. ? The patient was then woken and transported to the recovery area in stable condition. ? The patient tolerated the procedure well. Findings: Direct right an indirect left inguinal hernia Implants: Bard 3DMax mesh Anesthesia: GETA Surgeon: Noris Abdi MD Estimated blood loss (mL): 5 Condition: stable Disposition: PACU
[2025-11-09] MEDS: BUPIVACAINE 0.25% 30 ML INJECTION (14:15)
--- NOTE | 2025-11-09 14:40 | P.ANES_ITS ---
Anesthesia Charges Start Date/Time Anesthesia Start Date: 11/09/25 Anesthesia Start Time: 12:56 Stop Date/Time Anesthesia Stop Date: 11/09/25 Anesthesia Stop Time: 14:35 Coding CPT Codes CPT Codes: ANESTH REPAIR OF HERNIA - 99873 ([id number]) P2 - PATIENT W/MILD SYST DISEASE, QZ - TUBE ROOM CASHIER SVC W/O BESSEMER BOTTOM MAKER BY
--- NOTE | 2025-11-09 14:40 | W.ANESCHARGE ---
Anesthesia Charges Start Date/Time Anesthesia Start Date: 11/09/25 Anesthesia Start Time: 12:56 Stop Date/Time Anesthesia Stop Date: 11/09/25 Anesthesia Stop Time: 14:35 Coding CPT Codes CPT Codes: ANESTH REPAIR OF HERNIA - 58822 ([id number]) P2 - PATIENT W/MILD SYST DISEASE, QZ - COMPUTER TECHNICAL SUPPORT SPECIALIST SVC W/O FAMILY SUPPORT WORKER BY
[2025-11-09] MEDS: HYDROCODONE-ACETAMIN 5-325 MG 1 TAB PO (15:41)
== END 2025-11-09 15:51 | disposition home or self-care (01) ==
PROVIDERS: Visit Provider Surgery
PROC: (CPT 49650; principal; 2025-11-09 12:00)
DX: K40.20 Bilateral inguinal hernia, without obstruction or gangrene, not specified as recurrent (principal)
CPT/HCPCS: 49650; 00830; 00840; A9270; C1781; J0665; J0690; J1100; J1171; J1885; J2250; J2405; J2704; J2710; J3010; J7120

== ENCOUNTER 2025-11-11 03:27 | Emergency (ER) | payer BC, SELFPAY ==
[2025-11-11 03:30] VITALS: BP 135/79; PULSE 77; RESP 18; TEMP 36.6; O2SAT 99; BMI 30.8
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
--- OUTSIDE RECORDS SUMMARY | 2025-11-11 03:30 | XMS_ITS | Clinical Summary ---
Author Organization [facility] Address [address] [place] [address] Care Team Providers Care Supervisor Malted Milk Name Role Phone No Ref-Primary, Physician Primary Care Provider Allergies No known active allergies Medications MedicationSigDispense QuantityRefillsLast FilledStart DateEnd DateStatus oxyCODONE-acetaminophen (PERCOCET) 5-325 MG tablet Take 1-2 tablets by mouth every 4 hours as needed for pain 12 tablet 08/10/2021ctive Additional Information Patient not taking.Reported on 08/23/2021 Active Problems No known active problems Social History Tobacco UseTypesPacks/DayYears UsedDateSmoking Tobacco: Every DayCigarettes Smokeless Tobacco: NeverAlcohol UseStandard Drinks/WeekCommentsNot Currently0 (1 standard drink = 0.6 oz pure alcohol)PHQ-2AnswerDate RecordedPHQ-2 Score0 08/23/2021dolescent EducationAnswerDate RecordedGetting School Help NeededNot on file08/04/2023Sex and Gender InformationValueDate RecordedSex Assigned at BirthNot on fileLegal PzzFyfj8608/10/2021 8:26 PM CDTGender IdentityNot on file Sexual OrientationNot on file Last Filed Vital Signs Vital SignReadingTime TakenCommentsBlood Wxdqoqxf788/6210 2:28 PM CDT Shzig992108/23/2021 2:28 PM PQCFjahlvyzalm07.8 ??C (98.2 ??F)08/23/2021 2:28 PM CDTRespiratory Ujzw0085 2:28 PM CDTOxygen Yuzugpbpon04%08/11/2021 3:05 AM CDTInhaled Oxygen Concentration--Melvqc796.4 kg (250 lb)08/23/2021 2:28 PM NUDNpjdvu651.4 cm (6' 1)08/23/2021 2:28 PM CDTBody Mass Index32.9808/23/2021 2:28 PM CDT Plan of Treatment Not on file Care Teams Team MemberRelationshipSpecialtyStart DateEnd Date No Ref-Primary, Physician PCP - [facility]08/10/21
--- NOTE | 2025-11-11 04:56 | ED.GENADULT ---
HPI - General Adult General Chief complaint: Post Op Complication Stated complaint: bruising from surgery Time Seen by Provider: 11/11/25 03:37 Source: patient Mode of arrival: ambulatory Limitations: no limitations History of Present Illness HPI narrative: 40-year-old male presents to the emergency department for evaluation of swelling and bruising in his scrotum following hernia surgery 5 days ago. Patient has not been wearing the tight-fitting underwear that was recommended to him. He was warned that swelling and bruising of the scrotum can be expected. He is not having any difficulty voiding. There is no swelling in the inguinal area. He is not having any fevers or other signs of complications. He wishes worried in the wee hours of the night that this could be problematic. He did not contact his surgeon. Bowels have not yet moved in the last couple of days per his report but otherwise things are going normally. He is taking his pain medications as prescribed. He reports past medical history is benign, no major long-term health problems. No known drug allergies. Surgical notice reviewed as well. ROS is notable for the scrotal swelling and bruising as described above, otherwise denies any other abdominal, , skin or generalized changes. Related Data Previous Rx's ?Medication ?Instructions ?Recorded hydrocodone 5 mg-acetaminophen 325 1 - 2 tab PO Q6H PRN Pain #20 tabs 11/09/25 mg tablet Allergies Allergy/AdvReac Type Severity Reaction Status Date / Time No Known Drug Allergies Allergy Verified 11/09/25 11:09 [facility] Medical History Right foot pain ?M79.671 - Pain in right foot (ICD-10) Bone spur of toe of right foot ?M77.51 - Other enthesopathy of right foot and ankle (ICD-10) Surgical History History of open reduction and internal fixation (ORIF) procedure (03/28/23) ?Z98.890 - Other specified postprocedural states (ICD-10) S/P ORIF (open reduction internal fixation) fracture (08/26/21) ?Z98.890 - Other specified postprocedural states (ICD-10) ?Z87.81 - Personal history of (healed) traumatic fracture (ICD-10) Social History Smoking Status: Current every day smoker What tobacco products do you use: cigarettes Smoking packs per day: 1 Smoking cigarettes per day: 20.0 Years smoked: 21 Smoking pack-years: 21.00 Do you use any of these nicotine containing products: Vaping Products Second hand tobacco smoke exposure: No How often do you have a drink containing alcohol: never How often do you have six or more drinks on one occasion: Never AUDIT-C Alcohol total score: 0 Non-prescribed substance use: marijuana (any form) and other Non-prescribed substance use details: CBD- smoking THC, everyday. Last use was last night 11/08 Caffeine: Yes (Energy drinks 2) service: No Exam Const: Vital Signs, click to edit/add: Vital Signs - 24 hr 11/11/25 03:30 Temperature 97.8 F Pulse Rate [Right Pulse Oximeter] 77 Respiratory Rate 18 Blood Pressure [Ri ght Upper Arm] 135/79 Pulse Oximetry 99 Oxygen Delivery Me thod Room Air Documenting provider has reviewed patient's vital signs: yes Common normals: no apparent distress General appearance: cooperative HENMT: Common normals: normocephalic Head and scalp: normocephalic Face and sinus: normal facial exam Resp: Common normals: normal respiratory effort Effort & inspection: able to speak in complete sentences Cardio: Other: Regular rate and rhythm palpated at the right femoral artery. GI: Other: Abdomen is nondistended. No tenderness to palpation of suprapubic and right inguinal region. : Other: Scrotum has mild swelling on the right but the testicle moves freely with normal cremaster reflex is normal size and contour and nontender. There is mild bruising of the scrotum as well. Left testicle appears normal as well. Psych: Appearance: grossly normal Insight: fair Judgement: fair Other: Mildly anxious but redirectable. Skin: Narrative: Mild bruising of the scrotum only, otherwise skin appears benign Course Course ED Course: Postop day 5 from inguinal surgery with signs of mild scrotal swelling and bruising but no signs of torsion, hernia recurrence or neurovascular compromise. Counseled patient on findings and that this is consistent with the instructions he was given postoperatively. It is reviewed with him that he should be wearing tight-fitting supportive underwear to help reduce the swelling from getting worse. Cool packs can be used for tenderness. It will take several weeks for the bruising and swelling to dissipate now but wearing the tight-fitting supportive underwear will help markedly. Alarm symptoms reviewed that would warrant ED re-evaluation. He verbalizes understanding and agreement and is appreciative of the reassurance. Vital Signs Vital signs: Initial Vital Signs Temperature 97.8 F 11/11/25 03:30 Temperature Source Temporal Artery Scan 11/11/25 03:30 Pulse Rate 77 11/11/25 03:30 Respiratory Rate 18 11/11/25 03:30 Blood Pressure 135/79 11/11/25 03:30 Blood Pressure Mean 97 11/11/25 03:30 Blood Pressure Position Sitting 11/11/25 03:30 Pulse Oximetry 99 11/11/25 03:30 Oxygen Delivery Method Room Air 11/11/25 03:30 Vital Signs Temperature 97.8 F 11/11/25 03:30 Pulse Rate 77 11/11/25 03:30 Respiratory Rate 18 11/11/25 03:30 Blood Pressure 135/79 11/11/25 03:30 Pulse Oximetry 99 11/11/25 03:30 Oxygen Delivery Method Room Air 11/11/25 03:30 Temperature 97.8 F 11/11/25 03:30 Pulse Rate 77 11/11/25 03:30 Respiratory Rate 18 11/11/25 03:30 Blood Pressure 135/79 11/11/25 03:30 Pulse Oximetry 99 11/11/25 03:30 Oxygen Delivery Method Room Air 11/11/25 03:30 Discharge Plan Discharge Clinical Impression: Scrotal bruise Patient Disposition: Home w/ Parent or Adult Condition: Stable Instructions: Scrotal Pain (ED) Additional Instructions: As we discussed, the scrotum is the lowest gravity point for the abdomen and unfortunately bleeding and swelling tend to gravitated there after many types of surgeries but especially with hernia surgery. There are no signs of testicular torsion, infection or dangerous bleeding. It will actually take several weeks for this fluid and bruising to reabsorbed. If the swelling gets much worse, you have severe testicular pain or are unable to urinate, you should return to the emergency room. As her surgeon told you, this is unfortunately expected for min after surgery. Continue the restrictions that they recommended after surgery. It is okay for you to use Tylenol and or ibuprofen as needed for your discomfort. Activity Level: Activity as Tolerated Discharge Diet: Regular Prescriptions: No Action hydrocodone-acetaminophen 5-325 mg Tablet 1 - 2 tab PO Q6H PRN (Reason: Pain) Qty: 20 0RF Follow Up/Referrals: Provider,Not a Local [Primary Care Provider, Family Practice] Stand Alone Forms: [employer] Info Instructions
== END 2025-11-11 03:54 | disposition home or self-care (01) ==
LOC: ED 03:47
PROVIDERS: Emergency Provider Family Medicine
DX: S30.22XA Contusion of scrotum and testes, initial encounter (principal); Z98.890 Other specified postprocedural states
CPT/HCPCS: 99281; 99283